=== PATIENT | female | born 2000 | race Two or more races ===

== ENCOUNTER 2023-01-18 17:43 | Emergency (ER) | payer OTHER ==
[2023-01-18 17:54] VITALS: BP 125/71
[2023-01-18 18:10] LABS: BILIRUBIN,URINE NEGATIVE (NEGATIVE); GLUCOSE, URINE (UA) NEGATIVE (NEGATIVE); KETONES,URINE (UA) NEGATIVE (NEGATIVE); LEUKOCYTE ESTERASE, URINE SMALL (NEGATIVE); NITRITE,URINE NEGATIVE (NEGATIVE); OCCULT BLOOD,URINE TRACE-INTA (NEGATIVE); PH,URINE 6.5 PH (5.0-7.5); PROTEIN,URINE TRACE mg/dL (NEGATIVE); UROBILINOGEN,URINE 0.2 (NORMAL) E.U./dL (NORMAL)
[2023-01-18 18:12] LABS: CLARITY,URINE CLOUDY (CLEAR); HCG UR QUAL NEGATIVE
[2023-01-18 18:22] LABS: BACTERIA,URINE Moderate /HPF (None Seen); RBC,URINE 0-5 /HPF (0-5); SQUAMOUS EPITHELIAL CELL,UR RARE Squamous (<= Few); WBC,URINE >25 /HPF (0-5)
[2023-01-18] MEDS ORDERED: NITROFURANTOIN MACRO 100 MG CAPSULE PO STA (18:24)
[2023-01-18] MEDS ORDERED: PHENAZOPYRIDINE 100 MG TABLET PO STA (18:28)
--- NOTE | 2023-01-18 18:32 | ED Physician Documentation ---
History of Present Illness - Stated complaint Stated Complaint: FEMALE - Chief complaint Chief Complaint: UTI - Additonal information Additional information: 22-year-old female presents emergency department for several days of dysuria, ur gency and frequency. Was treated for urinary tract infection in September 2022. Denies possibility of . No vaginal discharge. No history of recurrent UTI Review of Systems Constitutional: reports: Reviewed and negative Respiratory: reports: Reviewed and negative GI: reports: Reviewed and negative : reports: Dysuria, Frequency, Hesitancy PD PAST MEDICAL HISTORY - Present Medications Home Medications: Ambulatory Orders Medication Instructions Recorded Confirmed Nitrofurantoin [Macrobid] 100 mg PO BID #14 cap 01/18/23 Phenazopyridine HCl [Pyridium] 200 mg PO TID PRN #6 tablet 01/18/23 - Allergies Allergies/Adverse Reactions: Allergies Allergy/AdvReac Type Severity Reaction Status Date / Time No Known Drug Allergies Allergy Verified 01/18/23 17:54 PD ED PE NORMAL - General General: Alert and oriented X 3, No acute distress - Cardiac Cardiac: RRR, No murmur - Respiratory Respiratory: No respiratory distress, Clear bilaterally - Abdomen Abdomen: Normal bowel sounds, Soft, Non tender (No significant abdominal tenderness elicited) - Back Back: No CVA TTP - Derm Derm: Warm and dry - Extremities Extremities: No deformity - Neuro Neuro: Alert and oriented X 3 Eye Opening: Spontaneous Motor: Obeys Commands Verbal: Oriented GCS Score: 15 Results - Vitals Vitals: Vital Signs - 24 hr 01/18/23 17:52 Temperature 36.6 C Heart Rate 63 Respiratory 20 Rate Blood Pressure 125/71 O2 Saturation 100 Oxygen O2 Source Room air - Labs Labs: Laboratory Tests 01/18/23 18:00 Urine Color YELLOW Urine Clarity CLOUDY Urine pH 6.5 Ur Specific [place] 1.025 Urine Protein TRACE Urine Glucose (UA) NEGATIVE Urine Ketones NEGATIVE Urine Occult Blood TRACE-INTA Urine Nitrite NEGATIVE Urine Bilirubin NEGATIVE Urine Urobilinogen 0.2 (NORMAL) Ur Leukocyte Esterase SMALL H Urine RBC 0-5 Urine WBC >25 H Ur Squamous Epith Cells RARE Squamous Urine Bacteria Moderate H Ur Microscopic Review INDICATED Urine Culture Comments INDICATED Urine HCG, Qual NEGATIVE PD Medical Decision Making - ED course Complexity details: d/w patient ED course: Well-appearing 22-year-old female presents to the ER with 4 to 5 days of dysuria urgency and frequency. Urinalysis per my interpretation is consistent with acute cystitis. Given lack of fevers flank pain or vomiting I have lower suspicion for a sending infection. Patient will be started on Macrobid. Prescription for pryidium also levied. Discussed the usual emergent return precautions for worsening symptoms. Departure - Departure Disposition: 01 Home, Self Care Clinical Impression: Acute cystitis Qualifiers: Hematuria presence: without hematuria Qualified Code(s): N30.00 - Acute cystitis without hematuria Condition: Stable Record reviewed to determine appropriate education?: Yes Prescriptions: Nitrofurantoin [Macrobid] 100 mg PO BID #14 cap Phenazopyridine HCl [Pyridium] 200 mg PO TID PRN #6 tablet PRN Reason: dysuria Comments: You do have a urinary tract infection. I am starting you on an antibiotic called Macrobid. You will take this Twice daily for the next week. Have also sent a prescription for Pyridium to the pharmacy. This will help reduce bladder spasm but will cause your urine turn bright orange. With the antibiotics I would expect improved symptoms over the next 72 hours. If they are worsening, you develop fevers, have back pain uncontrolled vomiting please return immediately to the ER.
== END 2023-01-18 18:36 | disposition home or self-care (01) ==
LOC: ED 17:43
DX: N30.00 Acute cystitis without hematuria (principal); Z87.440 Personal history of urinary (tract) infections
CPT/HCPCS: 81001; 81025; 87086; 87181; 99283; A9270; 81003

== ENCOUNTER 2023-02-17 11:12 | Emergency (ER) | payer OTHER ==
[2023-02-17 11:19] VITALS: BP 112/74
[2023-02-17 11:36] LABS: BILIRUBIN,URINE NEGATIVE (NEGATIVE); GLUCOSE, URINE (UA) NEGATIVE (NEGATIVE); KETONES,URINE (UA) NEGATIVE (NEGATIVE); LEUKOCYTE ESTERASE, URINE SMALL (NEGATIVE); NITRITE,URINE NEGATIVE (NEGATIVE); OCCULT BLOOD,URINE SMALL (NEGATIVE); PROTEIN,URINE TRACE mg/dL (NEGATIVE); UROBILINOGEN,URINE 0.2 (NORMAL) E.U./dL (NORMAL)
[2023-02-17 11:39] LABS: CLARITY,URINE HAZY (CLEAR); HCG UR QUAL NEGATIVE
[2023-02-17] MEDS ORDERED: NITROFURANTOIN MACRO 100 MG CAPSULE PO STA (11:44)
[2023-02-17] MEDS ORDERED: PHENAZOPYRIDINE 100 MG TABLET PO STA (11:44)
--- NOTE | 2023-02-17 11:45 | ED Physician Documentation ---
History of Present Illness - Stated complaint Stated Complaint: FEMALE - Chief complaint Chief Complaint: UTI - History obtained from History obtained from: Patient - Additonal information Additional information: 2 days of dysuria, frequency, and suprapubic pressure consistent with prior UTI a month ago. Prior to that it had been a little over a year since her last UTI. No flank pain or fevers. PD PAST MEDICAL HISTORY - Present Medications Home Medications: Ambulatory Orders Medication Instructions Recorded Confirmed Nitrofurantoin [Macrobid] 1 cap PO BID #10 cap 02/17/23 Phenazopyridine HCl [Pyridium] 200 mg PO TID PRN #6 tablet 02/17/23 - Allergies Allergies/Adverse Reactions: Allergies Allergy/AdvReac Type Severity Reaction Status Date / Time No Known Drug Allergies Allergy Verified 02/17/23 11:19 PD ED PE NORMAL - Vitals Vital signs reviewed: Yes - General General: Alert and oriented X 3, No acute distress, Well developed/nourished - Abdomen Abdomen: Non tender - Back Back: No CVA TTP - Derm Derm: No rash - Neuro Neuro: Alert and oriented X 3, Normal speech Results - Vitals Vitals: Vital Signs - 24 hr 02/17/23 11:16 Temperature 36.6 C Heart Rate 77 Respiratory 16 Rate Blood Pressure 112/74 O2 Saturation 100 Oxygen O2 Source Room air - Labs Labs: Laboratory Tests 02/17/23 11:31 Urine Color YELLOW Urine Clarity HAZY Urine pH 6.0 Ur Specific [place] 1.025 Urine Protein TRACE Urine Glucose (UA) NEGATIVE Urine Ketones NEGATIVE Urine Occult Blood SMALL H Urine Nitrite NEGATIVE Urine Bilirubin NEGATIVE Urine Urobilinogen 0.2 (NORMAL) Ur Leukocyte Esterase SMALL H Urine RBC 0-5 Urine WBC >25 H Ur Squamous Epith Cells FEW Squamous Urine Bacteria Few Ur Microscopic Review INDICATED Urine Culture Comments INDICATED Urine HCG, Qual NEGATIVE Departure - Departure Disposition: 01 Home, Self Care Clinical Impression: Acute cystitis Condition: Good Record reviewed to determine appropriate education?: Yes Instructions: ED UTI Cystitis Female Prescriptions: Nitrofurantoin [Macrobid] 1 cap PO BID #10 cap Phenazopyridine HCl [Pyridium] 200 mg PO TID PRN #6 tablet PRN Reason: dysuria Comments: I sent your prescriptions electronically to [facility] in [place]. If you continue to have monthly UTIs for the next couple of months would be reasonable to talk with your primary care doctor about a referral to a urologist. Return if worse. We will culture your urine, the results should be done in 48-72 hours. If an antibiotic change is necessary we will call you. Return if worse in the meantime, especially if you develop increasing flank pain, fevers, or cannot keep down the medication. Discharge Date/Time: 02/17/23 11:50
[2023-02-17 11:59] LABS: BACTERIA,URINE Few /HPF (None Seen); RBC,URINE 0-5 /HPF (0-5); SQUAMOUS EPITHELIAL CELL,UR FEW Squamous (<= Few); WBC,URINE >25 /HPF (0-5)
== END 2023-02-17 11:50 | disposition home or self-care (01) ==
LOC: ED 11:12
DX: N30.00 Acute cystitis without hematuria (principal)
CPT/HCPCS: 81001; 81025; 87086; 99283; A9270; 81003